=== PATIENT | male | born 1980 | race Native Hawaiian/Other Pacific Islander ===

== ENCOUNTER 2022-03-11 04:23 | Emergency (ER) | payer OTHER ==
[2022-03-11 04:41] VITALS: RESP 16; TEMP 98
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
[2022-03-11 07:04] VITALS: BP 134/93; PULSE 108
== END 2022-03-11 05:56 | disposition home or self-care (01) ==
LOC: EC 04:23
DX: S09.90XA Unspecified injury of head, initial encounter (principal); S01.03XA Puncture wound without foreign body of scalp, initial encounter; Z87.891 Personal history of nicotine dependence; W18.30XA Fall on same level, unspecified, initial encounter; Y09 Assault by unspecified means
CPT/HCPCS: 70450; 72125; 99284